=== PATIENT | female | born 2000 | race Caucasian/White ===

== ENCOUNTER 2021-03-08 16:04 | Emergency (ER) | payer OTHER ==
[~2021-03-08 16:04] MED LIST: BENTYL10 MG PO; BIRTH CONTROL PO; CELEXA10 MG PO; LAMICTAL100 MG PO; ZOFRAN8 MG PO
[2021-04-14] MEDS ORDERED: CITALOPRAM HBR40 MG PO (08:24)
[2021-04-14] MEDS ORDERED: LAMOTRIGINE100 MG PO (08:24)
[2021-04-14] MEDS ORDERED: CEPHALEXIN500 MG PO (08:25)
[2021-04-15] MEDS ORDERED: IBUPROFEN800 M1 PO (12:24)
== END 2021-03-08 18:10 | disposition home or self-care (01) ==
LOC: FER 16:04
DX: O20.0 Threatened abortion (principal); Z3A.01 Less than 8 weeks gestation of pregnancy
CPT/HCPCS: 99284

== ENCOUNTER → 2021-04-15 | Day surgery (SDC) | payer OTHER ==
[~2021-04-15] VITALS: Ht 160 cm; Wt 83.0 kg
[~2021-04-15] MED LIST changes: +CEPHALEXIN500 MG PO; +CITALOPRAM HBR40 MG PO; +IBUPROFEN800 M1 PO; +LAMOTRIGINE100 MG PO
[2021-04-15 11:41] LABS: HCT 41.1 % (37.0-47.0); HGB 13.4 g/dl (12.5-16.0); MCHC 32.6 g/dL (32.0-36.0); MCV 82.9 fL (78.0-100.0); MPV 8.4 fL (6.0-9.5); RBC 4.96 M/uL (4.20-5.40); RDW 13.2 % (11.5-14.0); WBC 11.6 K/uL (4.0-10.5)
== END | disposition home or self-care (01) ==
LOC: FAS 10:55
PROVIDERS: Obstetrics & Gynecology
DX: O02.1 Missed abortion (principal); F31.9 Bipolar disorder, unspecified; F41.9 Anxiety disorder, unspecified; K58.9 Irritable bowel syndrome, unspecified; Z91.013 Allergy to seafood; Z88.8 Allergy status to other drugs, medicaments and biological substances; Z79.2 Long term (current) use of antibiotics
CPT/HCPCS: 36415; 86850; 86900; 86901; 93005; J1100; J1170; J1885; J2250; J2405; J2704; J3010; J7050; J7120

== ENCOUNTER 2021-06-10 11:19 | Emergency (ER) | payer OTHER ==
[2021-06-10 12:49] LABS: BARBITURATES NEGATIVE (NEGATIVE); ECSTASY (MDMA) NEGATIVE (NEGATIVE); MARIJUANA (THC) POSITIVE (NEGATIVE); METHADONE NEGATIVE (NEGATIVE); OPIATES NEGATIVE (NEGATIVE)
[2021-06-10 12:50] LABS: AMPHETAMINES NEGATIVE (NEGATIVE); OXYCODONE NEGATIVE (NEGATIVE)
[2021-06-10] MEDS ORDERED: SEROQUEL 25MG T25 MG PO (15:03)
== END 2021-06-10 15:16 | disposition home or self-care (01) ==
LOC: FER 11:19
PROVIDERS: Internal Medicine
DX: F23 Brief psychotic disorder (principal); F31.9 Bipolar disorder, unspecified; F12.90 Cannabis use, unspecified, uncomplicated; Z88.8 Allergy status to other drugs, medicaments and biological substances
CPT/HCPCS: 80305

== ENCOUNTER 2022-03-26 13:10 | Emergency (ER) | payer OTHER ==
[~2022-03-26 13:10] MED LIST changes: +SEROQUEL 25MG T25 MG PO
[2022-03-26 15:08] LABS: BILIRUBIN 1+ mg/dL (NEGATIVE); BLOOD NEGATIVE Ery/uL (NEGATIVE); CLARITY CLEAR (CLEAR); COLOR YELLOW (YELLOW); GLUCOSE (U) NORMAL (NORMAL); LEUKOCYTES 2+ Leu/uL (NEGATIVE); NITRITE NEGATIVE (NEGATIVE); PROTEIN TRACE (LOW) mg/dL (NEGATIVE); SPECIFIC GRAVITY 1.025 (1.001-1.030)
[2022-03-26 15:45] LABS: BACTERIA 3+; MUCOUS TRACE
[2022-03-26 15:47] LABS: BASOPHIL 0.4 % (0-2); EOSINOPHIL 0.3 % (0-5); HCT 37.2 % (37.0-47.0); HGB 12.2 g/dl (12.5-16.0); LYMPHOCYTE 15.8 % (15-48); MCH 27.4 pg (25.0-31.0); MCHC 32.8 g/dL (32.0-36.0); MCV 83.6 fL (78.0-100.0); MONOCYTE 8.8 % (0-12); MPV 8.4 fL (6.0-9.5); NEUTROPHIL 74.4 % (41-80); NRBC 0; PLT 336 K/uL (150-400); RBC 4.45 M/uL (4.20-5.40); RDW 13.1 % (11.5-14.0); WBC 11.1 K/uL (4.0-10.5)
[2022-03-26 16:21] LABS: ALBUMIN 2.7 g/dL (3.4-5.0); BILIRUBIN - TOTAL 0.2 mg/dL (0.2-1.0); BUN/CREAT RATIO (CALC) 6.7 RATIO; CREATININE 0.6 mg/dL (0.51-0.95); GLOBULIN (CALCULATION) 3.9 g/dL; POTASSIUM 3.7 mmol/L (3.5-5.1); TOTAL PROTEIN 6.6 g/dL (6.4-8.2)
[2022-03-26] MEDS ORDERED: KEFLEX250 MG PO (20:24)
== END 2022-03-26 20:25 | disposition home or self-care (01) ==
LOC: FER 13:10
PROVIDERS: Emergency Medicine
DX: O99.281 Endocrine, nutritional and metabolic diseases complicating pregnancy, first trimester (principal); E86.0 Dehydration; O21.0 Mild hyperemesis gravidarum; O23.41 Unspecified infection of urinary tract in pregnancy, first trimester; N39.0 Urinary tract infection, site not specified; Z3A.12 12 weeks gestation of pregnancy; Z88.8 Allergy status to other drugs, medicaments and biological substances; Z28.311 Partially vaccinated for COVID-19
CPT/HCPCS: 36415; 80053; 81001; 85025; 87088; J2405; J7030; J7042

== ENCOUNTER 2022-05-22 14:00 | Emergency (ER) | payer OTHER ==
[~2022-05-22 14:00] MED LIST changes: +KEFLEX250 MG PO
== END 2022-05-22 16:07 | disposition home or self-care (01) ==
LOC: FER 14:00
DX: O99.352 Diseases of the nervous system complicating pregnancy, second trimester (principal); G56.02 Carpal tunnel syndrome, left upper limb; Z88.8 Allergy status to other drugs, medicaments and biological substances; Z28.311 Partially vaccinated for COVID-19
CPT/HCPCS: 99283

== ENCOUNTER 2022-07-11 00:28 | Day surgery (SDCO) | payer OTHER ==
[2022-07-11 01:36] LABS: INFLUENZA A NAA NEGATIVE (NEGATIVE)
[2022-07-11 01:39] LABS: CORONAVIRUS 2019 SARS-COV-2 POSITIVE (NEGATIVE)
[2022-07-11] MEDS ORDERED: PAXLOVID 300-11 EACH PO (01:40)
== END 2022-07-11 03:31 | disposition home or self-care (01) ==
LOC: FER 00:28 → FOB 02:15 → FER 02:29 → FOB 02:30
PROVIDERS: Emergency Medicine; ADMIT Specialist
DX: O98.512 Other viral diseases complicating pregnancy, second trimester (principal); U07.1 COVID-19; O36.8120 Decreased fetal movements, second trimester, not applicable or unspecified; O99.891 Other specified diseases and conditions complicating pregnancy; R10.32 Left lower quadrant pain; Z3A.27 27 weeks gestation of pregnancy
CPT/HCPCS: 99285; G0378; U0002